=== PATIENT | female | born 1955 | race Caucasian/White ===

== ENCOUNTER 2022-07-01 09:53 | Day surgery (SDC) | payer MEDICARE, MEDICAID ==
[2022-06-30 13:31] LABS: BASOPHILS # (AUTO) 0.1 X10'3 (0-0.2); BASOPHILS % (AUTO) 0.7 % (0-1); EOSINOPHILS # (AUTO) 0.2 X10'3 (0-0.9); HEMATOCRIT 42.1 % (35.0-45.0); HEMOGLOBIN 13.6 g/dl (12.0-16.0); LYMPHOCYTES # (AUTO) 2.4 X10'3 (1.1-4.8); LYMPHOCYTES % (AUTO) 30.6 % (21-51); MEAN CORPUSCULAR HEMOGLOBIN 27.8 PG (27.0-31.0); MEAN CORPUSCULAR HGB CONC 32.4 g/dL (33.0-36.5); MEAN CORPUSCULAR VOLUME 85.7 FL (78-98); MEAN PLATELET VOLUME 7.3 FL (7.4-10.4); MONOCYTES # (AUTO) 0.6 X10'3 (0-0.9); MONOCYTES % (AUTO) 7.3 % (2-12); NEUTROPHILS # (AUTO) 4.6 X10'3 (1.8-7.7); NEUTROPHILS % (AUTO) 58.4 % (42-75); PLATELET COUNT 294 X10'3 (140-440); RED BLOOD COUNT 4.91 X10'6 (4.20-5.60); RED CELL DISTRIBUTION WIDTH 13.8 % (11.5-14.5); WHITE BLOOD COUNT 7.9 X10'3 (4.5-11.0)
[2022-06-30 13:45] LABS: ALANINE AMINOTRANSFERASE 33 U/L (12-78); ALBUMIN 3.8 G/DL (3.4-5.0); ALBUMIN/GLOBULIN RATIO 1.1 (1.1-1.5); ALKALINE PHOSPHATASE 110 IU/L (46-116); ANION GAP 2 (8-16); ASPARTATE AMINO TRANSFERASE 25 U/L (10-37); BILIRUBIN,TOTAL 0.4 MG/DL (0.1-1.0); BLOOD UREA NITROGEN 22 MG/DL (7-18); BUN/CREATININE RATIO 29.7 (6.6-38.0); CALCIUM 9.6 MG/DL (8.5-10.1); CHLORIDE 105 MMOL/L (99-107); CREATININE 0.74 MG/DL (0.40-0.90); GLUCOSE 104 MG/DL (70-104); POTASSIUM 4.5 MMOL/L (3.5-5.1); SODIUM 138 MMOL/L (135-145); TOTAL CARBON DIOXIDE 30.9 MMOL/L (24-32); TOTAL PROTEIN 7.4 G/DL (6.4-8.2); eGFR 78 ML/MIN
[2022-06-30 13:56] LABS: APTT 29 SECONDS (22-32)
[2022-07-01] VITALS (10 sets, daily range): BP systolic 139–152; BP diastolic 69–85
[~2022-07-01] VITALS: Ht 157.5 cm; Wt 79.7 kg
[~2022-07-01 09:53] MED LIST: ASPI-1009 PO; CALC-499 PO; ESCI10TA45 PO; GLYB-97 PO; LOSA1TAB41 PO; METF500T PO; ZOC40T PO
[2022-07-01] MEDS ORDERED: nitroGLYCERIN 0.4mg SUBLingual tab SL PRN (10:25)
[2022-07-01] MEDS ORDERED: diphenhydrAMINE 25mg capsule PO PRN (10:30)
[2022-07-01] MEDS ORDERED: normal saline 1,000 ML IV SCH (10:30)
[2022-07-01] MEDS ORDERED: LORazepam 0.5 MG tablet PO PRN (10:30)
[2022-07-01] MEDS ORDERED: GLIM4TAB7 PO (11:21)
[2022-07-01] MEDS ORDERED: PRIMADONE PO (11:24)
[2022-07-01] MEDS ORDERED: MULT-1085 PO (11:25)
[2022-07-01] MEDS ORDERED: Niacin PO (11:25)
[2022-07-01] MEDS ORDERED: Calcium PO (11:26)
[2022-07-01] MEDS ORDERED: DOCO1CAP6 PO (11:27)
[2022-07-01] MEDS ORDERED: Naprosyn (11:27)
[2022-07-01] MEDS ORDERED: midazolam 1 mg/ML 2ml injection ONE (14:19)
[2022-07-01] MEDS ORDERED: LIDOcaine 1% 30ml preserv. free vial ONE (14:19)
[2022-07-01] MEDS ORDERED: fentaNYL/PF 50MCG/1 ML 2ML syringe ONE (14:19)
[2022-07-01] MEDS ORDERED: iohexol 350 MG/ML 50ML vial IV ONE (14:20)
[2022-07-01] MEDS ORDERED: iohexol 350MG/ML 100ml bottle IV ONE (14:20)
[2022-07-01] MEDS ORDERED: hydrALAZINE 20mg/ml inj. IV ONE (15:07)
[2022-07-01] MEDS ORDERED: OXAZEpam 15mg capsule PO PRN (15:55)
[2022-07-01] MEDS ORDERED: HYDROcodone/acetaminophen 10/325mg tab PO PRN (15:55)
[2022-07-01] MEDS ORDERED: ondansetron/PF 4mg/2ml inj IV PRN (15:55)
[2022-07-01] MEDS ORDERED: HYDROcodone/acetaminophen 5mg/325mg tablet PO PRN (15:55)
[2022-07-01] MEDS ORDERED: proCHLORperazine 10 MG/2 ml inj IV PRN (15:55)
== END 2022-07-01 20:00 | disposition home or self-care (01) ==
LOC: SSTAY O 09:53
PROVIDERS: ATTEND Internal Medicine Cardiovascular Disease
DX: R94.39 Abnormal result of other cardiovascular function study (principal); I25.10 Atherosclerotic heart disease of native coronary artery without angina pectoris; E11.9 Type 2 diabetes mellitus without complications; G25.0 Essential tremor; I10 Essential (primary) hypertension; E78.5 Hyperlipidemia, unspecified; Z88.5 Allergy status to narcotic agent; Z87.891 Personal history of nicotine dependence; Z79.899 Other long term (current) drug therapy; Z79.84 Long term (current) use of oral hypoglycemic drugs; Z79.01 Long term (current) use of anticoagulants
CPT/HCPCS: 36415; 71046; 80053; 82948; 85025; 85610; 85730; 93005; 93458; 99152; C1760; J0360; J1644; J2250; J3010; J3490; J7030; Q9967